=== PATIENT | male | born 1990 | race African-American/Black ===

== ENCOUNTER 2019-12-27 15:24 | Emergency (ER) | payer OTHER ==
[~2019-12-27] VITALS: Ht 170.2 cm; Wt 72.3 kg
[2019-12-27 16:15] LABS: BASO % 0.5 % (0.0-1.0); EOS # 0.7 10^3/uL (0.0-0.5); EOS % 9.2 % (0.0-3.0); HEMATOCRIT 41.8 % (42.0-52.0); HEMOGLOBIN 14.6 g/dl (13.5-17.5); LYMPH # 1.2 10^3/uL (1.5-5.0); LYMPH % 14.7 % (24.0-44.0); MEAN CORPUSCULAR HEMOGLOBIN 30.3 pg (27.0-33.0); MEAN CORPUSCULAR HGB CONC 34.9 g/dl (32.0-36.5); MEAN CORPUSCULAR VOLUME 86.7 fl (80.0-96.0); MONO # 0.7 10^3/uL (0.0-0.8); MONO % 9.3 % (0.0-5.0); NEUTROPHILS # 5.2 10^3/uL (1.5-8.5); PLATELET COUNT, AUTOMATED 176 10^3/uL (150-450); RED BLOOD COUNT 4.82 10^6/uL (4.30-6.10); WHITE BLOOD COUNT 7.8 10^3/uL (4.0-10.0)
[2019-12-27 16:40] LABS: ALBUMIN 3.9 GM/DL (3.2-5.2); BILIRUBIN,DIRECT 0.3 MG/DL (0.0-0.2); BILIRUBIN,TOTAL 0.9 MG/DL (0.2-1.0); TOTAL PROTEIN 7.6 GM/DL (6.4-8.2)
[2019-12-27] MEDS ORDERED: NAPROXEN 250 MG TAB PO ONE (17:15)
[2019-12-27] MEDS ORDERED: LIDOCAINE 5% (LIDODERM) PATCH TD ONE (17:15)
--- NOTE | 2019-12-27 17:40 | REP ---
Clinical: left chest/scapular pain. Comparison: None. Technique: PA and lateral. Findings: The mediastinum and cardiac silhouette are normal. The lung yadav are clear and without acute consolidation, effusion, or pneumothorax. The skeletal structures are intact and normal. Impression: 1. No acute cardiopulmonary process. Electronically Signed by Hector Knapp MD 12/27/2019 05:32 P
[2019-12-27] MEDS ORDERED: ROBA750T4 PO (17:44)
[2019-12-27] MEDS ORDERED: LIDO1PAD TOP (17:44)
[2019-12-27] MEDS ORDERED: NAPR-837 PO (17:44)
[2019-12-27 17:50] VITALS: BP 130/66
[2019-12-27] MEDS ORDERED: **NOTE PATIENT COMMENT** MISC XX SCH (21:00)
== END 2019-12-27 17:54 | disposition home or self-care (01) ==
LOC: M ED 15:24
DX: M54.6 Pain in thoracic spine (principal)

== ENCOUNTER 2020-05-04 12:53 | Emergency (ER) | payer OTHER ==
[~2020-05-04] VITALS: Ht 170.2 cm; Wt 70.9 kg
[~2020-05-04 12:53] MED LIST: LIDO1PAD TOP; NAPR-837 PO; ROBA750T4 PO
[2020-05-04] MEDS ORDERED: ALBUTEROL 90 MCG/ACT 8GM HFA INHALER INH ONE (13:15)
[2020-05-04 13:40] LABS: BASO % 0.7 % (0.0-1.0); EOS # 0.9 10^3/uL (0.0-0.5); EOS % 14.5 % (0.0-3.0); HEMATOCRIT 47.3 % (42.0-52.0); LYMPH # 1.1 10^3/uL (1.5-5.0); LYMPH % 18.9 % (24.0-44.0); MEAN CORPUSCULAR HEMOGLOBIN 29.8 pg (27.0-33.0); MEAN CORPUSCULAR HGB CONC 33.8 g/dl (32.0-36.5); MEAN CORPUSCULAR VOLUME 88.1 fl (80.0-96.0); MONO # 0.7 10^3/uL (0.0-0.8); MONO % 12.1 % (0.0-5.0); NEUTROPHILS # 3.2 10^3/uL (1.5-8.5); NEUTROPHILS % 53.6 % (36.0-66.0); PLATELET COUNT, AUTOMATED 200 10^3/uL (150-450); RED BLOOD COUNT 5.37 10^6/uL (4.30-6.10); WHITE BLOOD COUNT 5.9 10^3/uL (4.0-10.0)
--- NOTE | 2020-05-04 13:57 | REPVR ---
PROCEDURE INFORMATION: Exam: XR Chest, 2 Views Exam date and time: 05/04/2020 1:19 PM Age: 29 years old Clinical indication: Chest pain; Additional info: SOB TECHNIQUE: Imaging protocol: XR of the chest Views: 2 views. COMPARISON: CR Chest, 2 view PA, Lat 12/27/2019 5:16 PM FINDINGS: Lungs: Degree of inflation of the lungs is normal. No evidence of pulmonary edema. No focal airspace process. No concerning parenchymal lung mass. Pleural space: No pleural effusion or pneumothorax. Heart/Mediastinum: Cardiac silhouette appears normal. No mediastinal adenopathy or hilar mass. Bones/joints: Osseous structures show no acute or concerning abnormality. IMPRESSION: No active or focal cardiopulmonary process. Electronically signed by: Goldy Das On 05/04/2020 13:57:22 PM
[2020-05-04 14:13] LABS: BLOOD UREA NITROGEN 11 MG/DL (7-18); CALCIUM LEVEL 9.5 MG/DL (8.5-10.1); CARBON DIOXIDE LEVEL 33 MEQ/L (21-32); CHLORIDE LEVEL 101 MEQ/L (98-107); CK-MB VALUE MASS 3.2 NG/ML (<3.6); CPK CREATINE PHOSPHOKINASE 374 U/L (39-308); CREATININE FOR GFR 1.12 MG/DL (0.70-1.30); GLOMERULAR FILTRATION RATE > 60.0 (>60); GLUCOSE, FASTING 72 MG/DL (70-100); MB/CK RELATIVE INDEX 0.86 (< OR =4); POTASSIUM SERUM 3.9 MEQ/L (3.5-5.1); SODIUM LEVEL 139 MEQ/L (136-145); TROPONIN I < 0.02 NG/ML (< 0.10)
[2020-05-04 14:17] LABS: INR 1.05
[2020-05-04 14:20] LABS: D-DIMER QUANT 453.7 ng/ml (<500)
[2020-05-04] MEDS ORDERED: VENTAER INH (14:32)
[2020-05-04 14:45] VITALS: BP 127/77
== END 2020-05-04 14:46 | disposition home or self-care (01) ==
LOC: M ED 12:53
DX: R06.02 Shortness of breath (principal); J45.909 Unspecified asthma, uncomplicated; Z79.51 Long term (current) use of inhaled steroids

== ENCOUNTER 2021-06-01 12:21 | Emergency (ER) | payer OTHER ==
[~2021-06-01] VITALS: Ht 170.2 cm; Wt 71.5 kg
[2021-06-01 12:21] VITALS: BP 120/81
[~2021-06-01 12:21] MED LIST changes: +VENTAER INH
--- OUTSIDE RECORDS SUMMARY | 2021-06-01 12:25 | CCD ---
Author Author [facility] Address Unknown Phone Unavailable Support Name Relationship Address Phone [facility] Next Of Kin [address] [place] [address] [place] [address] Unavailable SWATI CRAPIO Next [place] [address] Re-disclosure Warning The records that you are about to access may contain information from federally-assisted alcohol or drug abuse programs. If such information is present, then the following federally mandated warning applies: This information has been disclosed to you from records protected by federal confidentiality rules (42 CFR part 2). The federal rules prohibit you from making any further disclosure of this information unless further disclosure is expressly permitted by the written consent of the person to whom it pertains or as otherwise permitted by 42 CFR part 2. A general authorization for the release of medical or other information is NOT sufficient for this purpose. The Federal rules restrict any use of the information to criminally investigate or prosecute any alcohol or drug abuse patient.The records that you are about to access may contain highly sensitive health information, the redisclosure of which is protected by Article 27-F of the [facility] Public Health law. If you continue you may have access to information: Regarding HIV / AIDS; Provided by facilities licensed or operated by the [facility] Office of Mental Health; or Provided by the [facility] Office for People With Developmental Disabilities. If such information is present, then the following [facility] mandated warning applies: This information has been disclosed to you from confidential records which are protected by state law. State law prohibits you from making any further disclosure of this information without the specific written consent of the person to whom it pertains, or as otherwise permitted by law. Any unauthorized further disclosure in violation of state law may result in a fine or halfway sentence or both. A general authorization for the release of medical or other information is NOT sufficient authorization for further disc losure. Medications Medication Brand Name Start Date Product Form Dose Route Admi nistrative Instructions Pharmacy Instructions Status Indications Reaction Description Data Source(s) 90 mcg/actuation 05/04/2020 12:00:00 AM EDT HFA aerosol inha ler 8 INHALE TWO PUFFS BY MOUTH EVERY 4 TO 6 HOURS NEEDED WHEEZING INHALE TWO PUFFS BY MOUTH EVERY 4 TO 6 HOURS NEEDED WHEEZING SOLD: 05/04/2020 [facility] Insurance Providers Payer name Policy type / Coverage type Policy ID Covered libertarian ID Covered libertarian's relationship to brothers Policy Brothers Plan Information [employer] O [id number] S [id number] [facility] ACTIVE DUTY [id number] SP [id number] [employer] [id number] SP [id number] Problems, Conditions, and Diagnoses No Information Surgeries/Procedures No Information Results ID Date Data Source [id number] 02/11/2021 01:53:00 PM EDT [facility] Name Value Range Interpretation Code Description Data Deepali rce(s) Supporting Document(s) SARS coronavirus 2 RNA Not Detected [facility] This lab was ordered by [facility] and reported by [facility]. Procedure Social History No Information
--- OUTSIDE RECORDS SUMMARY | 2021-06-01 18:43 | CCD ---
Author Author [facility] Address Unknown Phone Unavailable Support Name Relationship Address Phone [facility] Next Of Kin [address] [place] [address] [place] [address] Unavailable SWATI CARPIO Next [place] [address] Re-disclosure Warning The records that you are [...] is protected by Article 27-F of the [facility] Public Health law. If you continue you may have access to information: Regarding HIV / AIDS; Provided by facilities licensed or operated by the [facility] Office of Mental Health; or Provided by the [facility] Office for People With Developmental Disabilities. If such information is present, then the following [facility] mandated warning applies: This information has been [...] law may result in a fine or prison sentence or both. A general authorization for [...] type / Coverage type Policy ID Covered alliance party ID Covered alliance party's relationship to brothers Policy Brothers Plan Information [employer] [id number] SP [id number] [employer] O [id number] S [id number] [employer] [id number] SP [id number] Problems, Conditions, and Diagnoses No Information Surgeries/Procedures No Information Results ID Date Data Source [id number] 02/11/2021 01:53:00 PM EDT [facility] Name Value Range Interpretation Code Description Data Deepali rce(s) Supporting Document(s) SARS coronavirus 2 RNA Not Detected [facility] This lab was ordered by [facility] and reported by [facility]. Procedure Social History No Information
== END 2021-06-01 18:30 | disposition left against medical advice (07) ==
LOC: M ED 12:21
DX: Z53.21 Procedure and treatment not carried out due to patient leaving prior to being seen by health care provider (principal)